=== PATIENT | female | born 1990 | race Caucasian/White ===

== ENCOUNTER 2018-10-25 05:03 | Inpatient (IN) ==
--- NOTE | 2018-10-24 18:52 | HP ---
Chief Complaint - Chief Complaint Date of Service: 10/24/18 Time of Service: 18:42 Chief Complaint: Admit for RLTCS due to preeclampsia History of Present Illness: 28 yo at 36 6/7 weeks scheduled in am for repeat c/s due to mild preeclamp bekah. This complicated by anemia, prior c/s, mild preeclampsia. 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 No tx. Was told was basically benign. Anemia Onset Date: ~2005 Initially in high school and then with in 2016. Gestational hypertension Onset Date: ~2015 Hyperemesis affecting , antepartum Onset Date: ~2014 1st Trimester Ovarian cyst Onset Date: ~2015 Right. Removed during . Surgical History: Surgical History (Last Reviewed 10/24/18 @ 18:45 by Chaparro Garcia DO) Previous section (Chronic) declines TOLAC. History of hip surgery Onset Date: ~08/2014 Left hip repair History of ovarian cystectomy Onset Date: 12/20/15 Right. Performed during . History of removal of cyst Onset Date: ~2005 Cyst behind right ear Previous section Onset Date: 12/20/15 Breech Presentation Family History: Family History (Last Reviewed 10/24/18 @ 18:45 by Chaparro Garcia DO) Mother Alive and well Father Alive and well Grandmother Diabetes Hypertension Cancer Colon Grandfather Diabetes Hypertension Cancer Grandmother Hypertension Grandfather Gastric ulcer Social History: Preferred Language Georgian Smoking Status Never smoker (Last Updated 10/24/18 @ 13:11 by Chaparro Garcia DO) No Social History Section defined Review Of Systems (GEN) - Review of Systems Generalized/Overall Review: Present: No Symptoms Reported EENTM: Present: No Symptoms Reported Respiratory: Present: No Symptoms Reported Cardiac: Present: No Symptoms Reported Abdominal: Present: No Symptoms Reported Genitourinary: Present: No Symptoms Reported Musculoskeletal: Present: No Symptoms Reported Neurological: Present: No Symptoms Reported Skin: Present: No Symptoms Reported Endocrine: Present: No Symptoms Reported Allergies/Adverse Reactions: Allergies Allergy/AdvReac Type Severity Reaction Status Date / Time chlorhexidine Allergy Intermediate RASH Verified 10/24/18 10:31 Opioids - Morphine Analogues AdvReac Verified 10/24/18 10:31 Home Medications: HOME MEDICATIONS vitamin,calcium,petkduco-xywc-batph acid tablet 1 tab PO DAILY 03/20/18 [Last Taken Unknown] Exam - Exam Vital Signs: 10/24/18 Blood Pressure 146/76 H 10/24/18 Blood Pressure 142/82 H 10/24/18 Height 1.64 m 10/24/18 Weight 90.8 kg 10/24/18 Body Mass Index (BMI) 33.7 10/24/18 Blood Pressure 142/82 H 10/24/18 Blood Pressure Position Sitting 10/24/18 Respiratory Rate 18 10/24/18 Pulse Rate 89 10/24/18 Temperature 36.7 C 10/24/18 O2 Sat by Pulse Oximetry 99 Constitutional: Present: Alert, Oriented x3, Cooperative ENT Exam: Present: hearing grossly normal Breasts: Present: Exam deferred Respiratory: Present: lungs clear, no respiratory distress Cardiovascular/Chest: Present: normal peripheral pulses, regular rate, rhythm, edema - 1/4 Abdomen: Present: soft, nontender, no rebound tenderness, other - gravid /Rectal: Present: Exam deferred Extremity: Present: no calf tenderness, pedal edema Skin Exam: Present: normal color, warm/dry, no cyanosis Neurologic: Present: alert, normal mood/affect, oriented x 3 Appearance: Present: appropriate appearance, appropriate insight Eye contact: Present: cooperative, good eye contact Thoughts: Present: normal thought pattern Assessment/Plan - Assessment/Plan (1) Previous section Assessment: Admit for repeat LTCS due to preeclampsia with previous c/s declining TOLAC. Problem: Chronic (2) Preeclampsia Problem: Acute Qualifiers: Trimester: third trimester Qualified Code(s): O14.93 - Unspecified pre- eclampsia, third trimester
[2018-10-25] MEDS ORDERED: ceFAZolin SODIUM/DEXTROSE,ISO 2 GM/50 ML BAG IV ONE ×2 (05:05→07:45)
[2018-10-25] MEDS ORDERED: RINGER'S SOLUTION,LACTATED 1,000 ML IV PRN ×2 (05:05)
[2018-10-25] MEDS ORDERED: OXYTOCIN 20 UNITS in RINGER'S SOLUTION,LACTATED 1,000 ML IV ONE (05:05)
[2018-10-25 05:47] LABS: Hematocrit 35.1 % (37.0-47.0); Hemoglobin 11.8 gm/dL (12.5-16.0); Mean Cell Volume 91.4 fl (78-100); Mean Corpuscular Hemoglobin 30.7 pg (27-31); Mean Corpuscular Hgb Conc 33.6 g/dl (32-36); Mean Platelet Volume 10.6 fl (8-12.5); Neutrophil # 10.5 K/mm3 (1.3-6.0); Neutrophil % 72.4 % (42-75.0); Platelet Count 167 K/mm3 (150-450); Red Blood Count 3.84 M/mm3 (4.2-5.4); Red Cell Distribution Width 12.8 % (11.5-14.0); White Blood Count 14.5 K/mm3 (4.0-10.5)
[2018-10-25 05:59] LABS: Albumin * 2.7 gm/dl (3.4-5.0); Anion Gap 17.2 mmol/L (6.8-13.8); BUN/Creatinine Ratio 8.8 (9.0-21.6); Bilirubin, Total 0.3 mg/dL (0.0-1.1); Ca. Corrected For Albumin 9.8 mg/dL (8.4-10.2); Calcium * 9.1 mg/dL (7.9-10.9); Carbon Dioxide 19.6 mmol/L (24-32.6); Potassium 3.8 mmol/L (3.4-4.6); Total Protein 6.9 gm/dL (6.2-8.2)
[2018-10-25 07:15] LABS: Cocaine Ur Negative (NEGATIVE); Urine Barbiturate Negative (NEGATIVE); Urine Benzodiazepines Negative (NEGATIVE); Urine Opiates Negative (NEGATIVE); Urine PCP Negative (NEGATIVE); Urine THC Negative (NEGATIVE)
--- NOTE | 2018-10-25 07:38 | ANES ---
Anesthesia Pre Procedure Eval Vitals/Labs: Last Vital Signs Pulse 89 10/25/18 06:00 Resp 16 10/25/18 06:00 BP 144/87 H 10/25/18 06:00 Pulse Ox 99 10/25/18 06:00 HOME MEDICATIONS vitamin,calcium,jrbgblbg-icgw-sqhlo acid tablet 1 tab PO DAILY 03/20/18 [Last Taken Unknown] Allergies/Adverse Reactions: Allergies Allergy/AdvReac Type Severity Reaction Status Date / Time chlorhexidine Allergy Intermediate RASH Verified 10/25/18 05:19 Opioids - Morphine Analogues AdvReac Verified 10/25/18 05:19 - Planned Procedure Planned Procedure: Repeat Section, poss. 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 No tx. Was told was basically benign. Anemia Onset Date: ~2005 Initially in high school and then with in 2015. Gestational hypertension Onset Date: ~2015 Hyperemesis affecting , antepartum Onset Date: ~2014 1st Trimester Ovarian cyst Onset Date: ~2015 Right. Removed during . Surgical History (Last Reviewed 10/25/18 @ 07:37 by Alfred Alvarez CRNA) Previous section (Chronic) declines TOLAC. History of hip surgery Onset Date: ~08/2014 Left hip repair History of ovarian cystectomy Onset Date: 12/20/15 Right. Performed during . History of removal of cyst Onset Date: ~2005 Cyst behind right ear Previous section Onset Date: 12/20/15 Breech Presentation Family History (Last Reviewed 10/25/18 @ 07:37 by Alfred Alvarez CRNA) Mother Alive and well Father Alive and well Grandmother Diabetes Hypertension Cancer Colon Grandfather Diabetes Hypertension Cancer Grandmother Hypertension Grandfather Gastric ulcer - Family Anesthesia History Family History:: no untoward family reactions to anesthesia, no familial bleeding tendencies, no family history of clotting disorders, no family history of premature - Airway/Neck/Teeth Within Normal Limits:: Yes Teeth Condition: intact Neck Exam: full range of motion Mallampatti Score: 2 Thyromental (T-M) distance: > 6 cm Mandibulo Hyoid distance: > 3 cm - Respiratory Respiratory Physical: lungs clear Smoking Status: Never smoker Sleep Apnea currently treated: No Sleep Apnea by current assessment: No - Cardiovascular Cardiac History: arrhythmia - PAT Tolerate Activity: Good Heart Sounds: S1 & S2, Regular - Anesthesia Assessment and Plan ASA Class: PS, II, E Anesthesia Type Plan: Block - Bilateral TAP block for post op pain relief, Spinal
--- NOTE | 2018-10-25 11:06 | ANES ---
Post Anesthesia Discharge - Transfer of Care Transfer of Care handoff given to nurse: Yes - Discharge from PACU Discharge from PACU when meets criteria: Yes - Alert and comfortable.
[2018-10-25] MEDS ORDERED: ONDANSETRON HCL/PF 2 MG/ML VIAL IV PRN (11:11)
[2018-10-25] MEDS ORDERED: HYDROmorphone HCL 1 MG/ML DISP.SYRIN IV PRN (11:11)
[2018-10-25] MEDS ORDERED: ACETAMINOPHEN 325 MG TABLET PO PRN (11:11)
[2018-10-25] MEDS ORDERED: BISACODYL 10 MG SUPP.RECT RC PRN (11:11)
[2018-10-25] MEDS ORDERED: SIMETHICONE 80 MG TAB.CHEW PO PRN (11:11)
--- NOTE | 2018-10-25 11:16 | OR ---
Operative Report - Dictated Report Narrative: Indication: 28-year-old 2 para 1 at 37 weeks with prior section presents with mild preeclampsia status: Planned Pre Operative Diagnosis: 37 week intrauterine , mild preeclampsia, prior section-declines trial of labor Post Operative Diagnosis: Same. Procedure: Repeat low transverse section. Abdominal scar revision - 14 cm Surgeon: Cricket Garcia DO Order Processing Specialist: OR Staff Anesthesia: Spinal, TAP block Estimated Blood Loss: 200 mL Urine Output: 200 mL of clear urine Fluids Replacement: 1500 mL of crystalloid Drains: Garcia to gravity Surgical Complications: None Specimens: Placenta to freezer Findings: Male born at 1020 on 10/25/2019 with Apgars 8 and 9, weighing 2621 g in cephalic presentation with loose nuchal cord 1. Normal uterus, tubes, ovaries Technique: The patient was taken to the operating room and placed in dorsal supine position with a left lateral tilt. After adequate spinal anesthesia, garcia catheter inserted, SCDs placed, and 2 g of Ancef given preoperatively, the previous scar was excised in an elliptical fashion and the abdominal cavity was entered using sharp and blunt dissection. Two rolled laps were placed in the pericolic gutters on either side of the uterus. A transverse incision was made in the lower uterine segment and extended laterally and upwardly with digital traction. Clear fluid was noted upon amniotomy. The was delivered easily. The cord was clamped and cut and was handed off to awaiting controller coal or ore. The placenta was allowed to deliver spontaneously. The uterus was cleared of clot and debris. Uterine incision was closed with 0 Vicryl using a running stitch. A second imbricating layer was placed. Excellent hemostasis was noted. The rolled laps were removed from the abdominal cavitiy. The peritoneum was closed with a running 3-0 Monocryl. The same suture was used to approximate the rectus and pyramidalis muscles. The fascia was closed with a running 0 Vicryl. The subcutaneous layer was closed with a running 3-0 Monocryl. The same suture was used to approximate the subdermal layer. The skin was closed with a running 4-0 Monocryl and Dermabond. Sponge, lap, needle, and instrument count were correct x 2. Disposition: To post anesthesia care unit in good condition History for MU Definition: * The number of deliveries resulting in a live the patient experienced prior to current hospitalization * The previous delivery of live twins or any live multiple gestation is considered one live event. *If primagravida or nulliparous is documented select zero for the number of previous live births. Live Events: 1
--- NOTE | 2018-10-25 11:25 | ANES ---
Anesthesia Procedure Note Procedure Note: ANESTHESIA PROCEDURE NOTE Date of Procedure: 10/25/2018 Time of procedure: 11:15. Performed by: SHITAL Tejada CRNA, MSN Lead Project Manager:Soheila Kang RN. Preprocedure diagnosis: Post section pain. Post procedure diagnosis: Same. Procedure: Bilateral TAP block Indications: Post section pain relief. Findings: See below. Details of the procedure: The patient was brought to PACU and placed in the supine position. The patient was prepped with chlorhexidine and using ultrasound guidance the 3 abdominal muscular planes were identified and lidocaine 1% was infiltrated to the skin of the intended injection site. Under ultrasound guidance the the internal oblique and transverse this abdominis muscle layers were approached with visualization of a 4 inch block needle until the tip of the needle rested in the plane between the muscles. 25 mL bupivacaine 0.5% with 1-200,000 epinephrine was injected and the procedure was repeated on the other side. Please see radiology/ultrasound report for details and images of the procedure. EBL: 0 Fluids: N/A. Specimen: N/A. Post procedure condition: The patient tolerated the procedure well. No complications were noted. Thank you for this consultation. Alfred Alvarez CRNA, MSN
--- NOTE | 2018-10-25 11:32 | ANES ---
Post Anesthesia Assessment - Vital Signs Vitals: Last Vital Signs Temp 36.4 C 10/25/18 11:25 Pulse 60 10/25/18 11:25 Resp 14 10/25/18 11:25 BP 120/60 10/25/18 11:25 Pulse Ox 100 10/25/18 11:25 Airway Patency: Normal - Mental Status Level Of Consciousness: Awake, Alert, Appropriate - Pain Level Pain Score: 0 - N/V Assessment Nausea/Vomiting Presence: None Dehydration:: No
[2018-10-25] MEDS: IBUPROFEN 800 MG TABLET PO PRN ×2 (12:29→19:37)
[2018-10-25] MEDS: oxyCODONE HCL/ACETAMINOPHEN 1 TAB TABLET PO PRN ×3 (14:22→20:54)
[2018-10-25] MEDS: ENOXAPARIN SODIUM 40 MG/0.4 ML SYRG SC SCH (19:37)
[2018-10-25] MEDS: DOCUSATE SODIUM 100 MG CAPSULE PO SCH (20:41)
[2018-10-26] MEDS: oxyCODONE HCL/ACETAMINOPHEN 1 TAB TABLET PO PRN ×6 (00:09→21:34)
[2018-10-26] MEDS: IBUPROFEN 800 MG TABLET PO PRN ×4 (02:40→21:34)
[2018-10-26] MEDS: DOCUSATE SODIUM 100 MG CAPSULE PO SCH ×2 (09:02→21:35)
--- NOTE | 2018-10-26 11:32 | PN ---
Subjective - Date and Time Seen Date: 10/26/18 Time: 11:31 Objective - Vitals Vitals: Last Vital Signs Temp 36.6 C 10/26/18 08:56 Pulse 82 10/26/18 08:56 Resp 18 10/26/18 08:56 BP 116/73 10/26/18 08:56 Pulse Ox 100 10/26/18 08:56 Patient denies complaints. Tolerating regular diet. Ambulating without difficulty. Pain well controlled. Lochia wnl. Abdomen - soft, appropriately tender Incision - clean, dry, intact Uterus - firm, at umbilicus -1 No calf tenderness Impression: Post op day #1 s/p repeat section. Preeclampsia-resolved Plan: Continue routine post-operative/ care. Preeclampsia precautions. Cauti Physician Documentation - Urinary Catheter Management Urethral ([facility]) Date of Insertion: 10/25/18 Time of Insertion: 10:05 Assessment/Plan - Problems/Diagnosis (1) Previous section Problem: Chronic (2) Preeclampsia Problem: Acute Qualifiers: Trimester: third trimester Qualified Code(s): O14.93 - Unspecified pre- eclampsia, third trimester
[2018-10-26] MEDS: ENOXAPARIN SODIUM 40 MG/0.4 ML SYRG SC SCH (18:58)
[2018-10-27] MEDS: oxyCODONE HCL/ACETAMINOPHEN 1 TAB TABLET PO PRN (02:19)
[2018-10-27] MEDS: SENNOSIDES 8.6 MG TABLET PO PRN ×3 (02:19→20:54)
[2018-10-27] MEDS: IBUPROFEN 800 MG TABLET PO PRN ×4 (02:33→21:26)
[2018-10-27] MEDS: DOCUSATE SODIUM 100 MG CAPSULE PO SCH ×2 (09:14→20:54)
--- NOTE | 2018-10-27 09:21 | PN ---
Subjective - Date and Time Seen Date: 10/27/18 Time: 09:20 Objective - Vitals Vitals: Last Vital Signs Temp 36.7 C 10/27/18 06:40 Pulse 91 10/27/18 06:40 Resp 18 10/27/18 06:40 BP 121/66 10/27/18 06:40 Pulse Ox 98 10/27/18 06:40 [Patient denies complaints. Ambulating well. Tolerating regular diet. Pain well controlled.] Lochia wnl. Abdomen - soft, appropriately tender Incision - [clean, dry, intact] Uterus - firm, at umbilicus -[2] No calf tenderness, DTR-2/4 Impression: Post op day #2 s/p repeat section. Preeclampsia-resolved Plan: Continue routine post-operative/ care Cauti Physician Documentation - Urinary Catheter Management Urethral ([facility]seca) Date of Insertion: 10/25/18 Time of Insertion: 10:05 Assessment/Plan - Problems/Diagnosis (1) Previous section Problem: Chronic (2) Preeclampsia Problem: Acute Qualifiers: Trimester: third trimester Qualified Code(s): O14.93 - Unspecified pre- eclampsia, third trimester
[2018-10-27] MEDS: ENOXAPARIN SODIUM 40 MG/0.4 ML SYRG SC SCH (18:51)
[2018-10-28] MEDS: IBUPROFEN 800 MG TABLET PO PRN ×2 (03:34→10:44)
[2018-10-28 07:36] VITALS: BP 120/77
--- NOTE | 2018-10-28 09:16 | PN ---
Subjective - Date and Time Seen Date: 10/28/18 Time: 09:11 Objective - Vitals Vitals: Last Vital Signs Temp 36.9 C 10/28/18 07:10 Pulse 85 10/28/18 07:10 Resp 18 10/28/18 07:10 BP 120/77 10/28/18 07:10 Pulse Ox 97 10/28/18 07:10 Patient denies complaints. Ambulating without difficulty. Tolerating regular diet. Pain well controlled. Lochia wnl. Abdomen - soft, appropriately tender Incision - clean, dry, intact Uterus - firm, at umbilicus -3 No calf tenderness Impression: Post op day #3 s/p repeat section. Preeclampsia-stable Plan: Routine discharge instructions. Preeclampsia precautions. Cauti Physician Documentation - Urinary Catheter Management Urethral ([facility]seca) Date of Insertion: 10/25/18 Time of Insertion: 10:05 Assessment/Plan - Problems/Diagnosis (1) Previous section Problem: Chronic (2) Preeclampsia Problem: Acute Qualifiers: Trimester: third trimester Qualified Code(s): O14.93 - Unspecified pre- eclampsia, third trimester
[2018-10-28] MEDS: DOCUSATE SODIUM 100 MG CAPSULE PO SCH (09:36)
[2018-10-29] MEDS ORDERED: PRENATAL VITS96/IRON FUM/FOLIC 1 TAB TABLET PO SCH (09:00)
== END 2018-10-28 11:30 | disposition home or self-care (01) | DRG 787 ==
LOC: MS 05:03
PROVIDERS: ADMIT Obstetrics & Gynecology; ATTEND Obstetrics & Gynecology
CPT/HCPCS: 36415; 59025; 80053; 80307; 85025